=== PATIENT | male | born 1985 | race Caucasian/White ===

== ENCOUNTER → 2020-01-01 15:06 | Outpatient (CLI) | payer OTHER, SELFPAY ==
--- NOTE | 2020-01-01 | DI.RAD.S_ITS ---
PROCEDURE: XR LUMBAR SPINE 2-3V INDICATIONS: SCIATICA TECHNIQUE: 3 views of the lumbar spine were acquired. COMPARISON: None. FINDINGS: Bones: 5 [id number] vertebrae are present. There is normal bony alignment. No vertebral body compression fractures. No suspicious bony lesions. Soft tissues: Overlying bowel gas pattern is normal. No suspicious soft tissue calcifications. IMPRESSION: No compression fracture found, no subluxation or significant degenerative disc disease is seen. In the setting of sciatica a critical-site small disc herniation conceivably could be present and therefore MR scanning may become necessary. Dictated by: Jordan West M.D. on 01/01/2020 at 15:44 Approved by: Jodran West M.D. on 01/01/2020 at 15:45
== END ==
PROVIDERS: PCP Family Medicine; Referring Provider Family Medicine; Visit Provider Family Medicine
DX: M54.31 Sciatica, right side (principal)
CPT/HCPCS: 72100